=== PATIENT | female | born 1995 | race Two or more races ===

== ENCOUNTER 2020-08-28 18:32 | Emergency (ER) | payer BC ==
[~2020-08-28] VITALS: Ht 167.6 cm; Wt 72.6 kg
[2020-08-28] MEDS ORDERED: MORPHINE SULF INJ 2 MG/ML SYRINGE 1ML IV ONE (20:00)
[2020-08-28] MEDS ORDERED: ONDANSETRON HCL 4 MG/2 ML VIAL IV ONE (20:00)
[2020-08-28 20:29] LABS: Basophils % (auto) 0.2 % (0.0-2.0); Hemoglobin 13.5 g/dL (12.2-16.2); Mean Corpuscular Hgb Conc. 30.8 g/dL (32.0-36.0); White Blood Cell 22.2 10^3/uL (4.4-10.8)
[2020-08-28 20:31] LABS: Basophils # (auto) 0.1 10 ^3/uL (0-0.2); Eosinophils # (auto) 0 10 ^3/uL (0-0.8); Eosinophils % (auto) 0.1 % (0.0-7.0); Lymphocytes # (auto) 2.4 10 ^3/uL (0.4-5.4); Lymphocytes % (auto) 10.7 % (10.0-50.0); Mean Corpuscular Hemoglobin 22.4 pg (28.0-32.0); Mean Corpuscular Volume 72.9 fL (80.0-100.0); Monocytes % (auto) 4.6 % (0.0-12.0); Neutrophils # (auto) 18.8 10 ^3/uL (1.6-8.6); Neutrophils % (auto) 84.4 % (37.0-80.0); Nucleated Red Blood Cells % 0.1 %; Platelet Count (auto) 316 10^3/uL (140-450); Red Blood Cells 6.03 10^6/uL (4.0-5.20); Red Cell Distribution Width 17.3 % (11.8-14.3)
[2020-08-28 20:45] LABS: Albumin 3.6 g/dL (3.4-5.0); Calcium 8.6 mg/dL (8.5-10.1); Partial Thromboplastin Time 21.1 sec (23.0-31.2); Potassium 3.9 mmol/L (3.5-5.1)
[2020-08-28 20:50] LABS: BUN/Creatinine Ratio 13.6; Bilirubin, Total 0.3 mg/dL (0.2-1.0); Total Protein 8.2 g/dL (6.4-8.2)
[2020-08-28 21:00] VITALS: BP 128/78
== END 2020-08-28 21:30 | disposition short-term general hospital (02) ==
LOC: EDBD 18:32 → ER 18:37 → EDBD 18:37 → ER 21:30
DX: S22.020A Wedge compression fracture of second thoracic vertebra, initial encounter for closed fracture (principal); I60.9 Nontraumatic subarachnoid hemorrhage, unspecified; F17.210 Nicotine dependence, cigarettes, uncomplicated; V49.9XXA Car occupant (driver) (passenger) injured in unspecified traffic accident, initial encounter; Y93.89 Activity, other specified; Y92.89 Other specified places as the place of occurrence of the external cause; Y99.8 Other external cause status
CPT/HCPCS: 36415; 70450; 72125; 72128; 72131; 80053; 85025; 85610; 85730; 96374; 96375; 99285; J2270; J2405